=== PATIENT | female | born 1995 | race Caucasian/White ===

== ENCOUNTER 2017-02-18 23:46 | Emergency (ER) | payer MEDICAID ==
[2017-02-19] MEDS ORDERED: Bacitracin Zinc 1 Packet ONE (00:04)
[2017-02-19] MEDS ORDERED: Cephalexin 250 MG CAP ONE (00:05)
[2017-02-19] MEDS ORDERED: HYDROcodone/Acetaminophen 5/325 mg Tablet ONE (00:05)
== END 2017-02-19 00:20 | disposition home or self-care (01) ==
LOC: BURERS 23:46
DX: L60.0 Ingrowing nail (principal)
CPT/HCPCS: 99283